=== PATIENT | male | born 1980 | race Caucasian/White ===

== ENCOUNTER 2017-03-24 19:17 | Emergency (ER) | payer OTHER ==
[~2017-03-24] VITALS: Ht 177.8 cm; Wt 65.0 kg
[2017-03-24 19:23] VITALS: TEMP 36.5; Ht 177.8 cm; Wt 65.0 kg
[2017-03-24 19:25] VITALS: O2SAT 97
[2017-03-24 20:25] LABS: BASO % 0.3 %; BASO ABS # 0.04 K/uL (0-0.2); EOS % 0.2 %; EOS ABS # 0.03 K/uL (0-0.5); HEMATOCRIT 45.9 % (42-52); HEMOGLOBIN 16.5 g/dL (14.0-18.0); IG# 0.04 K/uL (0.00-0.02); LYMPH % 9.4 %; LYMPH ABS # 1.35 K/uL (1.2-3.4); MEAN CELL VOLUME 88.3 fL (80-100); MEAN CORPUSCULAR HEMOGLOBIN 31.7 pg (25-34); MEAN CORPUSCULAR HGB CONC 35.9 g/dl (32-36); MEAN PLATELET VOLUME 10.6 fL (7.4-10.4); MONO % 7.7 %; MONO ABS # 1.11 K/uL (0.11-0.59); NEUT % 82.1 %; NEUT ABS # 11.79 K/uL (1.4-6.5); PLATELET COUNT 236 K/uL (130-400); RED CELL DISTRIBUTION WIDTH CV 12.8 % (11.5-14.5); WHITE BLOOD COUNT 14.36 K/uL (4.8-10.8)
[2017-03-24 20:44] LABS: ALBUMIN 4.4 gm/dl (3.4-5.0); ALT/SGPT 39 U/L (12-78); AST/SGOT 19 U/L (15-37); BLOOD UREA NITROGEN 14 mg/dl (7-18); CALCIUM 9.1 mg/dl (8.5-10.1); CARBON DIOXIDE 27 mmol/L (21-32); CREATININE 1.34 mg/dl (0.60-1.40); GLUCOSE 124 mg/dl (70-99); POTASSIUM 3.4 mmol/L (3.5-5.1); SODIUM 137 mmol/L (136-145)
[2017-03-24 20:55] LABS: ALKALINE PHOSPHATASE 97 U/L (45-117)
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
[2017-03-24 23:07] VITALS: BP 138/73; PULSE 75; O2SAT 98
== END 2017-03-24 23:09 | disposition home or self-care (01) ==
LOC: C.EDB 19:19
DX: F60.3 Borderline personality disorder (principal); F17.200 Nicotine dependence, unspecified, uncomplicated